=== PATIENT | male | born 1995 | race Caucasian/White ===

== ENCOUNTER 2018-01-30 21:36 | Emergency (ER) | payer MEDICAID ==
[~2018-01-30] VITALS: Ht 182.9 cm; Wt 83.2 kg
[2018-01-31] MEDS ORDERED: NAPR-56 PO (00:45)
[2018-01-31 01:26] VITALS: BP 143/88
== END 2018-01-31 01:13 | disposition home or self-care (01) ==
LOC: ER 21:37
DX: S90.32XA Contusion of left foot, initial encounter (principal); F12.10 Cannabis abuse, uncomplicated; Z88.5 Allergy status to narcotic agent; W22.8XXA Striking against or struck by other objects, initial encounter; Y93.89 Activity, other specified; Y92.89 Other specified places as the place of occurrence of the external cause; Y99.8 Other external cause status
CPT/HCPCS: 73630; 73650; 99284

== ENCOUNTER 2018-06-01 00:19 | Emergency (ER) | payer MEDICAID ==
[~2018-06-01] VITALS: Ht 190.5 cm; Wt 81.0 kg
[2018-06-01 00:20] VITALS: BP 139/93
[2018-06-01] MEDS ORDERED: morphine 4 MG/ML inj SYRINge IV ONE (00:30)
[2018-06-01] MEDS ORDERED: ketorolac trometh. 30mg/ml inj. IV ONE (00:30)
[2018-06-01] MEDS ORDERED: ondansetron/PF 4mg/2ml inj IV ONE (00:30)
[2018-06-01] MEDS ORDERED: LIDOcaine 1.5% w/epinephrine 1:200,000 5ml ampul IJ ONE (01:20)
[2018-06-01] MEDS ORDERED: HYDR-3965 PO (01:27)
== END 2018-06-01 01:52 | disposition home or self-care (01) ==
LOC: ER 00:19
DX: S42.291A Other displaced fracture of upper end of right humerus, initial encounter for closed fracture (principal); F12.90 Cannabis use, unspecified, uncomplicated; Z88.5 Allergy status to narcotic agent; Z79.899 Other long term (current) drug therapy; Y04.8XXA Assault by other bodily force, initial encounter; Y93.89 Activity, other specified; Y92.89 Other specified places as the place of occurrence of the external cause; Y99.8 Other external cause status
CPT/HCPCS: 29105; 64450; 73030; 96374; 96375; 99284; A4565; J1885; J2270; J2405

== ENCOUNTER 2018-06-09 05:13 | Day surgery (SDC) | payer MEDICAID ==
[~2018-06-09] VITALS: Ht 188 cm; Wt 86.1 kg
[2018-06-09] VITALS (7 sets, daily range): BP systolic 95–130; BP diastolic 55–75
[~2018-06-09 05:13] MED LIST: Cefazolin 2GM/50ML dext iso,osmotic IVPB IV ONE; DOCUMENT DATE & TIME OF BETA-BLOCKER PO ONE; HYDR-3965 PO; albuterol 2.5 MG/3 ML nebule NEB PRN; famotidine 20mg tablet PO ONE; ringers solution, lacted 1,000 ML IV SCH
[2018-06-09] MEDS ORDERED: LIDOcaine 1% (10mg/ml) 2ml vial ONE (05:59)
[2018-06-09 06:12] LABS: BASOPHILS % (AUTO) 0.4 % (0-1); EOSINOPHILS # (AUTO) 0.3 X10'3 (0-0.9); EOSINOPHILS % (AUTO) 4.6 % (0-6); LYMPHOCYTES # (AUTO) 1.6 X10'3 (1.1-4.8); LYMPHOCYTES % (AUTO) 24.6 % (21-51); MEAN CORPUSCULAR HEMOGLOBIN 31.7 PG (27.0-31.0); MEAN CORPUSCULAR HGB CONC 34.7 % (33.0-36.5); MEAN CORPUSCULAR VOLUME 91.4 FL (78-98); MONOCYTES # (AUTO) 0.8 X10'3 (0-0.9); MONOCYTES % (AUTO) 11.5 % (2-12); NEUTROPHILS # (AUTO) 3.9 X10'3 (1.8-7.7); NEUTROPHILS % (AUTO) 58.9 % (42-75); PRE OP HEMATOCRIT 34.6 % (42.0-52.0); PRE OP PLATELET COUNT 286 X10'3 (140-440); RED BLOOD COUNT 3.79 X10'6 (4.70-6.10); RED CELL DISTRIBUTION WIDTH 14.5 % (11.5-14.5)
[2018-06-09] MEDS ORDERED: albuterol 2.5 MG/3 ML nebule NEB PRN (06:15)
[2018-06-09] MEDS ORDERED: famotidine 20mg tablet PO ONE (06:15)
[2018-06-09] MEDS ORDERED: Cefazolin 2GM/50ML dext iso,osmotic IVPB IV ONE (06:15)
[2018-06-09] MEDS ORDERED: ringers solution, lacted 1,000 ML IV SCH ×2 (06:15→09:34)
[2018-06-09] MEDS ORDERED: DOCUMENT DATE & TIME OF BETA-BLOCKER PO ONE (06:15)
[2018-06-09 06:21] LABS: PRE OP INR 0.9 INR; PRE OP PROTIME 9.6 SECONDS (9.0-12.0)
[2018-06-09 06:32] LABS: ALBUMIN 3.7 G/DL (3.4-5.0); ALBUMIN/GLOBULIN RATIO 1.1 (1.1-1.5); ALKALINE PHOSPHATASE 53 IU/L (46-116); BLOOD UREA NITROGEN 11 MG/DL (7-18); BUN/CREATININE RATIO 13.6 (5.4-32.0); CALCIUM 9.1 MG/DL (8.5-10.1); CHLORIDE 103 MMOL/L (99-107); CREATININE 0.81 MG/DL (0.60-1.10); PRE OP ALT 33 U/L (30-65); PRE OP ANION GAP 9 (8-16); PRE OP AST 23 U/L (10-37); PRE OP BILIRUB, TOTAL 0.4 MG/DL (0.0-1.0); PRE OP GLUCOSE 96 MG/DL (70-104); PRE OP POTASSIUM 4.6 MMOL/L (3.4-5.1); PRE OP SODIUM 138 MMOL/L (135-145); TOTAL CARBON DIOXIDE 26.5 MMOL/L (24-32); TOTAL PROTEIN 7.2 G/DL (6.4-8.2); eGFR > 90 ML/MIN
[2018-06-09] MEDS ORDERED: ketorolac trometh. 30mg/ml inj. ONE (08:09)
[2018-06-09] MEDS ORDERED: vancomycin 1,000mg inj ONE (08:10)
[2018-06-09] MEDS ORDERED: ROPIVAcaine 0.5% (5mg/ml) 30ml vial ONE ×2 (08:10→09:21)
[2018-06-09] MEDS ORDERED: cloNIDine hcl/PF 100mcg/ml inj ONE (08:22)
[2018-06-09] MEDS ORDERED: sevoflurane 250ml liquid IH ONE (08:24)
[2018-06-09] MEDS ORDERED: propofol 10mg/ml 20ml vial IV ONE (08:24)
[2018-06-09] MEDS ORDERED: fentaNYL/PF 50MCG/1 ML 2ML syringe ONE ×2 (08:28→08:38)
[2018-06-09] MEDS ORDERED: midazolam 2 mg/2 ml injection ONE ×2 (08:28)
[2018-06-09] MEDS ORDERED: propofol inj 20 ML IV ONE (09:21)
[2018-06-09] MEDS ORDERED: dexamethasone sod phosphate 4mg/ml inj. ONE (09:21)
[2018-06-09] MEDS ORDERED: ondansetron/PF 4mg/2ml inj ONE (09:21)
[2018-06-09] MEDS ORDERED: morphine 4 MG/ML inj SYRINge IV PRN ×2 (09:35)
[2018-06-09] MEDS ORDERED: proCHLORperazine 10 MG/2 ml inj IV PRN (09:35)
[2018-06-09] MEDS ORDERED: ondansetron/PF 4mg/2ml inj IV PRN (09:35)
[2018-06-09] MEDS ORDERED: meperidine/PF 25mg/ml syringe IV PRN ×3 (09:35)
[2018-06-09] MEDS ORDERED: HYDROcodone/acetaminophen 10/325mg tab PO PRN (09:55)
== END 2018-06-09 10:52 | disposition home or self-care (01) ==
LOC: PAS 05:13
PROVIDERS: ATTEND Orthopaedic Surgery
DX: S42.221A 2-part displaced fracture of surgical neck of right humerus, initial encounter for closed fracture (principal); F17.210 Nicotine dependence, cigarettes, uncomplicated; F12.90 Cannabis use, unspecified, uncomplicated; F10.10 Alcohol abuse, uncomplicated; J45.998 Other asthma; Z86.14 Personal history of Methicillin resistant Staphylococcus aureus infection; Z88.5 Allergy status to narcotic agent; Z79.891 Long term (current) use of opiate analgesic; Y04.8XXA Assault by other bodily force, initial encounter; Y93.89 Activity, other specified; Y92.89 Other specified places as the place of occurrence of the external cause; Y99.8 Other external cause status
CPT/HCPCS: 23615; 36415; 73060; 76001; 80053; 85025; 85610; 85730; A4565; C1713; J0690; J0735; J1100; J1885; J2250; J2405; J2704; J2795; J3010; J3490; J7030; J7120; A7000; J3370